=== PATIENT | female | born 1990 | race African-American/Black ===

== ENCOUNTER 2017-02-20 22:30 | Emergency (ER) | payer BC, MEDICAID ==
[~2017-02-20] VITALS: Ht 165.1 cm; Wt 133.0 kg
[2017-02-21 01:05] LABS: CHLORIDE 106 mEq/L (98-107); INDEX HEMOLYSI 1 (1-3); INDEX ICTERIC 1 (1-4); INDEX LIPEMIC 1 (1-3)
[2017-02-21 01:06] LABS: BASOPHILS % 0.5 % (0.0-2.0); EOSINOPHILS % 1.5 % (0.0-5.0); HEMATOCRIT. 41.2 % (36.0-48.0); HEMOGLOBIN. 13.7 g/dL (12.0-16.0); MEAN CORPUSCULAR HEMOGLOBIN 26.9 pg (28.0-32.0); MEAN CORPUSCULAR HGB CONC 33.2 g/dL (31.0-37.0); MEAN CORPUSCULAR VOLUME 81.1 fL (81.0-99.0); MEAN PLATELET VOLUME 8.5 fl (7.4-10.4); PLATELET 223 x1000/uL (130-400); RED BLOOD CELL COUNT 5.07 mill/uL (4.2-5.4); RED CELL DISTRIBUTION WIDTH 13.2 % (11.6-14.6); WHITE BLOOD COUNT 10.5 x1000/uL (4.5-11.0)
[2017-02-21 01:14] LABS: ALANINE AMINOTRANSFERASE 31 IU/L (13-61); ALBUMIN 3.9 g/dL (3.4-5.0); ANION GAP 11; CALCIUM 9.4 mg/dL (8.5-10.1); CARBON DIOXIDE 29 mEq/L (21-32); UREA NITROGEN BLOOD 10 mg/dL (7-21); eGFR > 60 mL/min (>60)
[2017-02-21 01:49] LABS: CLARITY URINE CLEAR (CLEAR); COLOR URINE YELLOW (YELLOW); GLUCOSE URINE NEGATIVE (NEGATIVE); KETONES URINE TRACE (NEGATIVE); LEUKOCYTE ESTERASE URINE 1+ (NEGATIVE); NITRITE URINE NEGATIVE (NEGATIVE); OCCULT BLOOD URINE 1+ (NEGATIVE); PH URINE 5.5 (4.5-8.0); PROTEIN URINE NEGATIVE (NEGATIVE); SPECIFIC GRAVITY URINE 1.024 (1.005-1.030)
[2017-02-21 02:04] LABS: SQUAMOUS EPITHELIAL CELL URINE FEW /lpf (RARE/1+)
[2017-02-21 02:08] LABS: BACTERIA URINE 1+
[2017-02-21] MEDS ORDERED: SODIUM CHLORIDE 0.9% 1,000 ML IV ONE (02:23)
[2017-02-21] MEDS ORDERED: CEFTRIAXONE 1 G PREMIX 50 ML IV NR (02:30)
[2017-02-21] MEDS: IBUPROFEN 600MG TABLET PO NR ×2 (03:08→03:52)
[2017-02-21] MEDS ORDERED: MORPHINE SULFATE 4 MG/ML CPJ (NOT FOR IM USE) IV NR (03:30)
[2017-02-21] MEDS ORDERED: ONDANSETRON HCL 4MG/2ML VIAL IV NR (03:30)
[2017-02-21 06:26] VITALS: BP 145/91
[2017-02-21] MEDS ORDERED: HYDROCODONE/ACETAMINOPHEN 5/325MG TABLET PO ONE (06:30)
== END 2017-02-21 06:57 | disposition home or self-care (01) ==
LOC: ER 22:30 → EDBD 22:30 → ER 02-21 06:57
DX: N20.0 Calculus of kidney (principal)
CPT/HCPCS: 36415; 76770; 80053; 81001; 81025; 85025; 96365; 96375; 99285; J0696; J7030; Z7610

== ENCOUNTER 2022-05-09 10:58 | Emergency (ER) | payer BC, MEDICAID ==
[~2022-05-09] VITALS: Ht 162.6 cm; Wt 139.0 kg
[2022-05-09 11:19] VITALS: BP 141/91
[2022-05-09] MEDS ORDERED: KETOROLAC 30MG/ML VIAL IM ONE (16:30)
[2022-05-09 16:40] LABS: CLARITY URINE CLOUDY (CLEAR); COLOR URINE YELLOW (YELLOW); KETONES URINE NEGATIVE (NEGATIVE); LEUKOCYTE ESTERASE URINE 2+ (NEGATIVE); NITRITE URINE NEGATIVE (NEGATIVE); OCCULT BLOOD URINE NEGATIVE (NEGATIVE); PROTEIN URINE NEGATIVE (NEGATIVE); SPECIFIC GRAVITY URINE 1.019 (1.005-1.030); UROBILINOGEN URINE 0.2 E.U./dL (0.2-1.0)
[2022-05-09 17:01] LABS: BASOPHILS % 0.3 % (0.0-2.0); EOSINOPHILS % 1.1 % (0.0-5.0); HEMATOCRIT. 42.3 % (36.0-48.0); HEMOGLOBIN. 13.9 g/dL (12.0-16.0); LYMPHOCYTES % 43.9 % (20.0-50.0); MEAN CORPUSCULAR HEMOGLOBIN 27.5 pg (28.0-32.0); MEAN CORPUSCULAR VOLUME 83.5 fL (81.0-99.0); MEAN PLATELET VOLUME 8.2 fl (7.4-10.4); MONOCYTES % 6.2 % (2.0-8.0); NEUTROPHILS % 48.5 % (40.0-76.0); PLATELET 230 x1000/uL (130-400); RED BLOOD CELL COUNT 5.07 mill/uL (4.2-5.4); RED CELL DISTRIBUTION WIDTH 13.3 % (11.6-14.6)
[2022-05-09 17:07] LABS: CHLORIDE 107 mEq/L (98-107)
[2022-05-09] MEDS ORDERED: IBUP-2029 MT (17:35)
[2022-05-09] MEDS ORDERED: CEPH500C2 MT (17:35)
[2022-05-13 04:12] LABS: NEISSERIA GONORRHOEAE NAA Negative (Negative)
== END 2022-05-09 18:43 | disposition home or self-care (01) ==
LOC: ER 10:58
DX: R10.9 Unspecified abdominal pain (principal); N39.0 Urinary tract infection, site not specified; J45.909 Unspecified asthma, uncomplicated; E11.9 Type 2 diabetes mellitus without complications; I10 Essential (primary) hypertension; Z88.5 Allergy status to narcotic agent; Z88.6 Allergy status to analgesic agent
CPT/HCPCS: 36415; 80053; 81003; 81025; 83690; 85025; 87491; 87591; 96372; 99283; J1885

== ENCOUNTER 2022-05-14 04:45 | Emergency (ER) | payer MEDICAID ==
[~2022-05-14] VITALS: Ht 162.6 cm; Wt 141.0 kg
[~2022-05-14 04:45] MED LIST: CEPH500C2 MT; IBUP-2029 MT
[2022-05-14] MEDS ORDERED: TOBR5DRO7 EACHEYE (06:35)
[2022-05-14] MEDS ORDERED: TOBR3.5O LEFTEYE ×3 (06:35→06:36)
[2022-05-14] MEDS ORDERED: ACYC30OI TP (06:37)
[2022-05-14 06:47] VITALS: BP 118/78
== END 2022-05-14 06:47 | disposition home or self-care (01) ==
LOC: ER 04:45
DX: K13.79 Other lesions of oral mucosa (principal); H00.14 Chalazion left upper eyelid; Z88.5 Allergy status to narcotic agent; Z88.6 Allergy status to analgesic agent
CPT/HCPCS: 99283

== ENCOUNTER 2022-07-02 12:53 | Emergency (ER) | payer MEDICAID ==
[~2022-07-02] VITALS: Ht 167.6 cm; Wt 150.0 kg
[~2022-07-02 12:53] MED LIST changes: +ACYC30OI TP; +TOBR3.5O LEFTEYE; +TOBR5DRO7 EACHEYE
[2022-07-02 13:05] VITALS: BP 127/85
[2022-07-02 16:01] LABS: CLARITY URINE CLOUDY (CLEAR); COLOR URINE YELLOW (YELLOW); KETONES URINE TRACE (NEGATIVE); LEUKOCYTE ESTERASE URINE 2+ (NEGATIVE); NITRITE URINE NEGATIVE (NEGATIVE); OCCULT BLOOD URINE NEGATIVE (NEGATIVE); PROTEIN URINE NEGATIVE (NEGATIVE); UROBILINOGEN URINE 0.2 E.U./dL (0.2-1.0)
[2022-07-02 16:05] LABS: BASOPHILS % 0.7 % (0.0-2.0); EOSINOPHILS % 1.1 % (0.0-5.0); HEMATOCRIT. 45.9 % (36.0-48.0); HEMOGLOBIN. 14.9 g/dL (12.0-16.0); LYMPHOCYTES % 36.9 % (20.0-50.0); MEAN CORPUSCULAR HEMOGLOBIN 27.4 pg (28.0-32.0); MEAN CORPUSCULAR VOLUME 84.2 fL (81.0-99.0); MEAN PLATELET VOLUME 8.4 fl (7.4-10.4); MONOCYTES % 6.8 % (2.0-8.0); NEUTROPHILS % 54.5 % (40.0-76.0); PLATELET 240 x1000/uL (130-400); RED BLOOD CELL COUNT 5.45 mill/uL (4.2-5.4); RED CELL DISTRIBUTION WIDTH 13.3 % (11.6-14.6)
[2022-07-02 16:14] LABS: CHLORIDE 104 mEq/L (98-107)
[2022-07-02] MEDS ORDERED: IBUPROFEN 600MG TABLET PO STA (16:22)
[2022-07-02] MEDS ORDERED: NAPR-681 PO (17:46)
[2022-07-02] MEDS ORDERED: SULF1TAB48 PO (17:46)
== END 2022-07-02 18:00 | disposition home or self-care (01) ==
LOC: ER 13:04
DX: N39.0 Urinary tract infection, site not specified (principal); M25.572 Pain in left ankle and joints of left foot; J45.909 Unspecified asthma, uncomplicated; E11.9 Type 2 diabetes mellitus without complications; I10 Essential (primary) hypertension; Z88.5 Allergy status to narcotic agent; Z88.6 Allergy status to analgesic agent
CPT/HCPCS: 36415; 73610; 80053; 81003; 81025; 85025; 99284

== ENCOUNTER 2022-08-25 09:06 | Emergency (ER) | payer MEDICAID ==
[~2022-08-25] VITALS: Ht 162.6 cm; Wt 117.0 kg
[~2022-08-25 09:06] MED LIST changes: +NAPR-681 PO; +SULF1TAB48 PO
[2022-08-25] MEDS ORDERED: IBUPROFEN 600MG TABLET PO STA (11:11)
[2022-08-25 14:55] LABS: CLARITY URINE CLOUDY (CLEAR); COLOR URINE YELLOW (YELLOW); KETONES URINE NEGATIVE (NEGATIVE); LEUKOCYTE ESTERASE URINE 1+ (NEGATIVE); NITRITE URINE NEGATIVE (NEGATIVE); OCCULT BLOOD URINE 2+ (NEGATIVE); PH URINE 6.5 (4.5-8.0); PROTEIN URINE NEGATIVE (NEGATIVE); SPECIFIC GRAVITY URINE 1.015 (1.005-1.030); UROBILINOGEN URINE 0.2 E.U./dL (0.2-1.0)
[2022-08-25] MEDS ORDERED: ALBU18HF2 IH (15:06)
[2022-08-25] MEDS ORDERED: DEXTL PO (15:06)
[2022-08-25] MEDS ORDERED: CIPHCO LEFT EAR (15:06)
[2022-08-25] MEDS ORDERED: SULF1TAB48 PO (15:06)
[2022-08-25] MEDS ORDERED: NAPR-681 PO (15:06)
[2022-08-25 15:34] VITALS: BP 127/86
== END 2022-08-25 15:35 | disposition home or self-care (01) ==
LOC: ER 09:08
DX: H60.92 Unspecified otitis externa, left ear (principal); J06.9 Acute upper respiratory infection, unspecified; N39.0 Urinary tract infection, site not specified; Z20.822 Contact with and (suspected) exposure to COVID-19; Z88.5 Allergy status to narcotic agent
CPT/HCPCS: 81003; 81025; 87070; 87426; 87430; 99283; C9803

== ENCOUNTER 2022-09-27 11:57 | Emergency (ER) | payer MEDICAID ==
[~2022-09-27] VITALS: Ht 162.6 cm; Wt 100.0 kg
[~2022-09-27 11:57] MED LIST changes: +ALBU18HF2 IH; +CIPHCO LEFT EAR; +DEXTL PO
[2022-09-27 12:06] VITALS: BP 163/99
[2022-09-27] MEDS ORDERED: METHOCARBAMOL 500MG TABLET PO ONE (13:15)
[2022-09-27] MEDS ORDERED: IBUP-2028 MT (15:42)
[2022-09-27] MEDS ORDERED: METH-653 MT (15:42)
== END 2022-09-27 16:54 | disposition home or self-care (01) ==
LOC: ER 11:57
DX: M79.605 Pain in left leg (principal); Z88.6 Allergy status to analgesic agent; Z88.5 Allergy status to narcotic agent; Z79.899 Other long term (current) drug therapy; W06.XXXA Fall from bed, initial encounter; Y93.89 Activity, other specified; Y92.89 Other specified places as the place of occurrence of the external cause; Y99.8 Other external cause status
CPT/HCPCS: 73560; 99283

== ENCOUNTER 2023-09-07 13:40 | Emergency (ER) | payer MEDICAID, OTHER ==
[~2023-09-07] VITALS: Ht 162.6 cm; Wt 135.0 kg
[~2023-09-07 13:40] MED LIST changes: +IBUP-2028 MT; +METH-653 MT; -TOBR5DRO7 EACHEYE; +TOBRO EACHEYE
[2023-09-07 14:13] LABS: BASOPHILS % 0.3 % (0.0-2.0); EOSINOPHILS % 0.6 % (0.0-5.0); HEMATOCRIT. 39.5 % (36.0-48.0); HEMOGLOBIN. 12.9 g/dL (12.0-16.0); LYMPHOCYTES % 31.1 % (20.0-50.0); MEAN CORPUSCULAR HEMOGLOBIN 27.1 pg (28.0-32.0); MEAN CORPUSCULAR HGB CONC 32.7 g/dL (31.0-37.0); MEAN CORPUSCULAR VOLUME 82.9 fL (81.0-99.0); MEAN PLATELET VOLUME 8.3 fl (7.4-10.4); MONOCYTES % 7.8 % (2.0-8.0); NEUTROPHILS % 60.2 % (40.0-76.0); PLATELET 257 x1000/uL (130-400); RED BLOOD CELL COUNT 4.77 mill/uL (4.2-5.4); RED CELL DISTRIBUTION WIDTH 13.8 % (11.6-14.6); WHITE BLOOD COUNT 9.9 x1000/uL (4.5-11.0)
[2023-09-07 14:14] VITALS: BP 134/82; PULSE 85; RESP 20; TEMP 97.4; O2SAT 96
[2023-09-07 14:23] LABS: ALANINE AMINOTRANSFERASE 9 IU/L (10-49); ALBUMIN 4.2 g/dL (3.2-4.8); ASPARTATE AMINOTRANSFERASE 18 IU/L (<34); BILIRUBIN TOTAL 0.6 mg/dL (0.1-1.0); CALCIUM 9.1 mg/dL (8.7-10.4); CARBON DIOXIDE 28 mEq/L (21-32); CHLORIDE 107 mEq/L (98-107); CREATININE 0.8 mg/dL (0.6-1.0); GLUCOSE 98 mg/dL (70-105); POTASSIUM 3.7 mEq/L (3.5-5.1); PROTEIN TOTAL 6.4 g/dL (6.0-8.3); SODIUM 142 mEq/L (136-145); UREA NITROGEN BLOOD 5 mg/dL (9-23)
== END 2023-09-08 07:23 | disposition home or self-care (01) ==
LOC: ER 13:40
DX: N28.1 Cyst of kidney, acquired (principal); N83.209 Unspecified ovarian cyst, unspecified side; J45.909 Unspecified asthma, uncomplicated; E11.9 Type 2 diabetes mellitus without complications; I10 Essential (primary) hypertension; Z88.6 Allergy status to analgesic agent; Z88.5 Allergy status to narcotic agent; Z87.442 Personal history of urinary calculi; Z98.890 Other specified postprocedural states
CPT/HCPCS: 36415; 80053; 85025; 99283